=== PATIENT | male | born 1960 | race Two or more races ===

== ENCOUNTER 2024-08-03 18:12 | Emergency (ER) | payer MEDICAID, SELFPAY ==
[2024-08-03 18:48] VITALS: BP 172/93; PULSE 101; RESP 18; TEMP 36.7; O2SAT 96
--- NOTE | 2024-08-03 18:59 | PD.EDEAR ---
ED Ear RME/HPI General Chief complaint: Ear Stated complaint: LEFT EAR PAIN X 2 DAYS; [facility] SENT FOR RUPTURE TM Time Seen by Provider: 08/03/24 18:40 Arrival date/time: 08/03/24 18:12 RME / HPI RME / HPI Narrative: This section includes all my notes and documentations, including HPI, PE, and ED course. Maurilio Beltre MD HPI: 64yo male with a history of HTN presents to the ED for a chief complaint of left ear and upper jaw pain x 2 days. Patient states he was seen by his PCP at [facility] today and was told his TM was ruptured, and was sent over for evaluation. He denies any fever, chills or any other associated symptoms. No other complaints reported. ROS: All negative except as documented in HPI. Physical Exam: General: Alert and oriented. In obvious pain. Eyes: Conjunctivae and lids clear. ENT: No nasal congestion. Pus-like discharge in the left auditory canal with erythematous TM and bulging and loss of landmarks. Left TM and right TM not ruptured. Neck: Supple. Heart: RRR. Lungs: No respiratory distress. Good air movement. No rhonchi, wheezing, rales. Abdomen: Soft and nontender. Legs: No clubbing, cyanosis, edema. Skin: Warm and dry. Neuro: Alert and oriented X 3. At this point, diagnoses include left otitis media and left otitis externa. Treatment here included Augmentin and ibuprofen and two Tylenol #3. Started to feel better. Based on my best medical judgment, made decision no further evaluation or treatment indicated at this time. Patient understands and agrees to the discharge instructions customized and printed, see below. Maurilio Beltre MD Discharge Instructions from Dr. Belrte printed for you: 1. For your severe left ear infection, take Augmentin and use the eardrops as prescribed. 2. Ibuprofen 800 mg every 6-8 hours today and tomorrow to decrease inflammation then as needed. Tylenol with codeine for severe pain. 3. See a private doctor on 08/06/2024 for recheck. If not significantly getting better, ask for referral to see ENT specialist 4. Seek immediate medical care with worsening or with any concerns. Related Data Previous Rx's ?Medication ?Instructions ?Recorded aspirin 81 mg tablet,delayed 81 mg PO QDAY #30 tabs 09/03/19 release (Aspir-Low) atorvastatin 80 mg tablet 80 mg PO QPM #30 tabs 09/03/19 clopidogrel 75 mg tablet (Plavix) 75 mg PO QDAY #30 tabs 09/03/19 lisinopril 20 mg tablet 20 mg PO QDAY #30 tabs 09/03/19 ondansetron HCl 4 mg tablet 4 mg PO QID PRN nausea and 10/30/20 (Zofran) vomiting #14 tabs acetaminophen 300 mg-codeine 30 mg 2 tab PO TID PRN pain #20 tabs 08/03/24 tablet amoxicillin 875 mg-potassium 1 tab PO BID #20 tabs 08/03/24 clavulanate 125 mg tablet ibuprofen 800 mg tablet 800 mg PO Q8H PRN pain #30 tabs 08/03/24 [id number] 3.3 4 drp otic (ear) TID 7 days #10 mL 08/03/24 mg-3 mg-10 mg-0.5 mg/mL ear drops,susp (Cortisporin-TC) Allergies Allergy/AdvReac Type Severity Reaction Status Date / Time No Known Allergies Allergy Verified 08/03/24 18:13 Review of Systems Review of Systems Systems Reviewed: All systems reviewed, normal except as documented Past Medical History Past Medical History CARDIAC: Positive Cardiac Disorders, Myocardial Infarction and Hypertension; Negative Congestive Heart Failure RESPIRATORY: Negative Chronic Obstructive Pulmonary Disease (COPD) or Asthma GENITOURINARY: Negative Renal Disease ENDOCRINE: Negative Diabetes Mellitus Type 1 or Diabetes Mellitus Type 2 HEMATOLOGIC: Negative Sickle Cell Disease Social History SMOKING STATUS: Never smoker SUBSTANCE USE: does not use ED Exam Narrative Physical exam: As noted in HPI. Course Quality Measures none Orders Category Date Time Status ACETAMINOPHEN w/COD 300-30 [Tylenol w/Cod #3] Med 08/03/24 19:02 Discontinued 2 tab PO X1 ONE Amoxicillin/Pot Clav 875 [Augmentin 875] Med 08/03/24 19:02 Discontinued 1 tab PO X1 ONE Ibuprofen Tab [Motrin Tab] Med 08/03/24 19:02 Discontinued 800 mg PO X1 ONE Vital Signs Vital signs: Vital Signs Temperature 98.1 F 08/03/24 18:48 Pulse Rate 101 H 08/03/24 18:48 Respiratory Rate 18 08/03/24 18:48 Blood Pressure 172/93 H 08/03/24 18:48 Pulse Oximetry (%) 96 08/03/24 18:48 Oxygen Delivery Method Room Air 08/03/24 18:48 Ear MDM Narrative MDM Narrative:: Scribe Attestation: 08/03/24 - Celi Mijares am scribing for and in the presence of Dr. Beltre. Patient data External records reviewed:: [facility] previous records (Per chart review, patient has no relevant previous ED visits.) Clinical information provided by:: patient Social determinants that could affect healthcare access:: none Patient has the following chronic illnesses:: HTN How is presenting disease/condition affected by chronic disease/condition?: uneffected by Evaluation data The following diagnostics were reviewed and interpreted by me:: other (specify) (none) Lab and/or radiology exams considered but not ordered:: none Interpretation Summary: none Medications / Prescriptions Medications or Prescriptions considered but not ordered:: none Medication administrations:: Medication Administration History Discontinued Medications Acetaminophen/Codeine Phosphate (Acetaminophen W/Cod 300-30 Tablet) 2 tab PO X1 ONE Stop: 08/03/24 19:03 Amoxicillin/Clavulanate Potassium (Amoxicillin/Pot Clav 875 Tablet) 1 tab PO X1 ONE Stop: 08/03/24 19:03 Ibuprofen (Ibuprofen Tab 400 Mg Tablet) 800 mg PO X1 ONE Stop: 08/03/24 19:03 Augmentin and ibuprofen and two Tylenol #3 Consultations Consultation(s) initiated? (list below): No Diagnosis Ear Differential Diagnosis: otitis externa, otitis media, foreign body in ear, ruptured TM and cerumen impaction Most likely diagnosis given after review of the tests above:: Infection of left ear Admission Indicated Admission indicated?: not indicated Explain why admission is indicated or not indicated:: Admission criteria not met. Admission Request Was there a request for admission?: No Disposition Plan Disposition Plan: Discharge Discharge Attestation Discharge Attestation: The patient and all family members were given an opportunity to ask questions and understood the discharge instructions. Discharge instructions specifically effects, indications for sooner follow up or return to the emergency department, and the expected course of current diagnosis. Patient condition: Stable Discharge Plan Plan Patient Disposition: HOME (Self Care) Prescriptions/Referrals Prescriptions/Med Rec: New Cortisporin-TC 3.3-3-10-0.5 mg/mL drops,suspension 4 drp otic (ear) TID 7 Days Qty: 10 0RF ibuprofen 800 mg tablet 800 mg PO Q8H PRN (Reason: pain) Qty: 30 0RF acetaminophen-codeine 300-30 mg tablet 2 tab PO TID MDD 6 PRN (Reason: pain) Qty: 20 0RF amoxicillin-pot clavulanate 875-125 mg tablet 1 tab PO BID Qty: 20 0RF No Action lisinopril 20 mg Tablet 20 mg PO QDAY Qty: 30 0RF clopidogrel [Plavix] 75 mg Tablet 75 mg PO QDAY Qty: 30 0RF aspirin [Aspir-Low] 81 mg Tablet,Delayed Release (Dr/Ec) 81 mg PO QDAY Qty: 30 0RF atorvastatin 80 mg tablet 80 mg PO QPM Qty: 30 0RF ondansetron HCl [Zofran] 4 mg tablet 4 mg PO QID PRN (Reason: nausea and vomiting) Qty: 14 0RF Problem List Clinical Impression: Infection of left ear Patient/Caregiver Discharge Instructions Discharge Activity: activity as tolerated Education Materials: ED Otitis Media Antibiotic ..., ED External Ear Infection (Adult) Additional Instructions: Discharge Instructions from Dr. Beltre printed for you: 1. For your severe left ear infection, take Augmentin and use the eardrops as prescribed. 2. Ibuprofen 800 mg every 6-8 hours today and tomorrow to decrease inflammation then as needed. Tylenol with codeine for severe pain. 3. See a private doctor on 08/06/2024 for recheck. If not significantly getting better, ask for referral to see ENT specialist. Unfortunately, this hospital has no ENT specialist. 4. Seek immediate medical care with worsening or with any concerns. Instrucciones de candice del Dr. Beltre impresas para usted: 1. Para marin infecci?n grave en el o?do joão, tome Augmentin y use las gotas para los o?dos seg?n lo prescrito. 2. Ibuprofeno 800 mg cada 6-8 horas hoy y ma?sergio para disminuir la inflamaci?n y luego seg?n sea necesario. Tylenol con code?na para el dolor intenso. 3. Visite a un m?dico privado el 06/08/2024 para volver a controlarlo. Si no mejora significativamente, solicite tiffanie derivaci?n para bruna a un especialista en otorrinolaringolog?a. Lamentablemente, [facility] no tiene un especialista en otorrinolaringolog?a. 4. Busque atenci?n m?dica inmediata si empeora o si tiene alguna [email or web address], Print Language: Luxembourgish Stand Alone Forms: Padmini Award Info., Patient Portal Info Letter
[2024-08-03] MEDS: AMOXICILLIN/POT CLAV 875 TABLET 1 TAB PO (19:27)
[2024-08-03] MEDS: ACETAMINOPHEN w/COD 300-30 TABLET 2 TAB PO (19:27)
[2024-08-03] MEDS: IBUPROFEN TAB 400 MG TABLET 800 MG PO (19:28)
[2024-08-03 19:49] VITALS: RESP 18
== END 2024-08-03 19:51 | disposition home or self-care (01) ==
LOC: SERX 19:23
PROVIDERS: Emergency Provider Emergency Medicine; PCP Student in an Organized Health Care Education/Training Program
DX: H66.92 Otitis media, unspecified, left ear (principal)
CPT/HCPCS: 99282; A9270